=== PATIENT | female | born 1950 | race Two or more races ===

== ENCOUNTER 2017-03-19 23:34 | Emergency (ER) | payer OTHER, MEDICAID ==
[~2017-03-19] VITALS: Ht 162.6 cm; Wt 90.7 kg
[~2017-03-19 23:34] MED LIST: LEVO25TA9 PO; LOSA50TA3 PO
--- NOTE | 2017-03-19 23:55 | NUR ---
Pt states she is here because her BP is elevated. Pt c/o some LUQ ABD pain, 6/10, and slight dizziness. Pt denies SOB, n/v, no other complaints, no distress noted.
[2017-03-19] MEDS ORDERED: CHOL500062 PO (23:58)
[2017-03-19] MEDS ORDERED: GABA-534 PO (23:58)
[2017-03-19] MEDS ORDERED: OMEP40CA37 PO (23:58)
[2017-03-19] MEDS ORDERED: TRAM50TA2 PO (23:58)
[2017-03-19] MEDS ORDERED: ASPI-605 PO (23:58)
[2017-03-20 00:29] LABS: BASOPHILS % (AUTO) 0.4 % (0.0-2.0); EOSINOPHILS # (AUTO) 1.2 K/uL (0.0-0.7); HEMOGLOBIN 13.5 G/DL (12.0-16.0); LYMPHOCYTES # (AUTO) 2.2 K/UL (0.8-4.8); LYMPHOCYTES % (AUTO) 26.6 % (20.5-51.5); MEAN CORPUSCULAR HEMOGLOBIN 25.9 UUG (27.0-31.0); MEAN CORPUSCULAR HGB CONC 33 g/dL (32.0-37.0); MEAN CORPUSCULAR VOLUME 78.4 FL (81.0-99.0); MONOCYTES # (AUTO) 0.5 K/UL (0.1-1.30); MONOCYTES % (AUTO) 5.6 % (0.0-11.0); NEUTROPHILS # (AUTO) 4.4 K/UL (1.8-8.9); NEUTROPHILS % (AUTO) 53.4 % (38.5-71.5); PLATELET COUNT (AUTO) 238 K/UL (150-450); RED BLOOD CELL COUNT(AUTO) 5.22 MIL/UL (4.2-5.4); WHITE BLOOD COUNT (AUTO) 8.3 K/UL (4.0-11.2)
[2017-03-20 00:35] LABS: CREATININE 0.7 mg/dL (0.6-1.3); POTASSIUM 3.6 mmol/L (3.5-5.1)
[2017-03-20] MEDS ORDERED: IV NORMAL SALINE 250 ML IV ONE ×2 (00:36→02:25)
[2017-03-20] MEDS ORDERED: IOHEXOL 300MG/ML 100 ML INFUS..BTL ONE ×2 (00:36→02:25)
[2017-03-20 00:48] LABS: BILIRUBIN,DIRECT 0.1 mg/dL (0.0-0.2); BILIRUBIN,TOTAL 0.7 mg/dL (0.2-1.0); TOTAL PROTEIN, SERUM 7.5 g/dL (6.4-8.2)
--- NOTE | 2017-03-20 02:15 | NUR ---
Pt going back to CT
--- NOTE | 2017-03-20 06:18 | NUR ---
Pt resting in bed, no complaints, no distress noted. spoke with Dr. Fatima at [facility] who accepted pt, insurance transport.
--- NOTE | 2017-03-20 07:41 | NUR ---
PT IS IN BED, RESTING COMFORTABLY. NO S/S OF ACUTE DISTRESS AT THIS TIME. CONTINUE TO MPNITOR THE PT.
--- NOTE | 2017-03-20 08:52 | NUR ---
[facility], STACIA CALLED WITH TRANSFER INFORMATION. PT IS GOING TO BE TRANSFERED TO [facility], TELEMETRY ROOM #[id number] [facility]IA [facility]. ADMITTING IS DR FAJARDO. PHONE # FOR REPORT IS : [phone].
--- NOTE | 2017-03-20 09:25 | NUR ---
REPORT WAS GIVEN TO ANETTE DAVIS AT [facility]. [facility] TRANSFER CALLED , QUINN IS 45 MINUTES.
--- NOTE | 2017-03-20 09:40 | NUR ---
PT WAS TRANSFERED TO [facility]IA [facility]. REPORT GIVEN TO AMBULANCE RN.
== END 2017-03-20 09:44 | disposition short-term general hospital (02) ==
LOC: ER 23:40
DX: I11.0 Hypertensive heart disease with heart failure (principal); I50.9 Heart failure, unspecified; J45.909 Unspecified asthma, uncomplicated; Z79.82 Long term (current) use of aspirin; R51 Headache; I70.8 Atherosclerosis of other arteries
CPT/HCPCS: 36415; 70450; 71010; 71260; 74177; 80048; 80076; 83690; 83880; 84484; 85025; 85379; 85730; 93005; 99285; A4663; J7050 ×2; Q9967 ×2; 70030-TC

== ENCOUNTER 2022-11-23 13:39 | Emergency (ER) | payer BC, OTHER ==
[~2022-11-23] VITALS: Ht 167.6 cm; Wt 89.8 kg
[~2022-11-23 13:39] MED LIST changes: +ASPI-605 PO; +CHOL500062 PO; +GABA-534 PO; +OMEP40CA21 PO; +TRAM50TA2 PO
--- NOTE | 2022-11-23 14:01 | NUR ---
Dr Chi at the bedside for MSE.
[2022-11-23] MEDS ORDERED: ACETAMINOPHEN ES 500 MG TABLET ONE (14:12)
[2022-11-23] MEDS ORDERED: METO200T49 PO (14:13)
[2022-11-23] MEDS ORDERED: APIX5TAB4 PO (14:13)
[2022-11-23] MEDS ORDERED: ATOR20TA PO (14:13)
--- NOTE | 2022-11-23 14:13 | NUR ---
Xray in progress.
[2022-11-23] MEDS ORDERED: ACETAMINOPHEN ES 500 MG TABLET PO ONE (14:15)
--- NOTE | 2022-11-23 15:09 | NUR ---
Patient is resting comfortably in bed with eyes closed, NAD noted.
--- NOTE | 2022-11-23 15:27 | NUR ---
Patient discharged to home in stable condition. Written and verbal after care instructions given. Patient and pt's daughter verbalize understanding of instructions. Stressed follow up or return to ER for worsening s/s. Pt left ER w/ steady gait accompained by family.
[2022-11-23 15:31] VITALS: BP 152/69
== END 2022-11-23 15:31 | disposition home or self-care (01) ==
LOC: ER 13:41
DX: M79.622 Pain in left upper arm (principal); R51.9 Headache, unspecified; I50.9 Heart failure, unspecified; J45.909 Unspecified asthma, uncomplicated; E03.9 Hypothyroidism, unspecified; E78.5 Hyperlipidemia, unspecified; Z90.710 Acquired absence of both cervix and uterus; Z79.82 Long term (current) use of aspirin; Z79.899 Other long term (current) drug therapy; W18.39XA Other fall on same level, initial encounter; Y93.89 Activity, other specified; Y92.89 Other specified places as the place of occurrence of the external cause; Y99.8 Other external cause status
CPT/HCPCS: 70450; 73030; 73060; A4663; A9150